=== PATIENT | male | born 1990 | race Caucasian/White ===

== ENCOUNTER 2023-03-16 07:24 | Emergency (ER) | payer OTHER ==
[2023-03-16 07:51] VITALS: BP 150/79; O2SAT 96
[2023-03-16 08:10] LABS: BASOPHILS % (AUTO) 0.3 %; EOSINOPHILS # (AUTO) 0.1 10^3/uL (0.0-0.7); EOSINOPHILS % (AUTO) 0.6 %; HCT - HEMATOCRIT 50.3 % (42.0-52.0); HGB - HEMOGLOBIN 16.9 g/dL (14.0-18.0); LYMPHOCYTES # (AUTO) 0.7 10^3/uL (1.5-3.5); LYMPHOCYTES % (AUTO) 9.1 %; MEAN CORPUSCULAR HEMOGLOBIN 29.6 pg (27.0-31.0); MEAN CORPUSCULAR HGB CONC 33.6 g/dL (32.0-36.0); MEAN CORPUSCULAR VOLUME 88.1 fL (80.0-94.0); MEAN PLATELET VOLUME 9.3 fL (7.4-11.4); MONOCYTES # (AUTO) 0.7 10^3/uL (0.0-1.0); MONOCYTES % (AUTO) 8.7 %; NEUTROPHILS # (AUTO) 6.2 10^3/uL (1.5-6.6); PLT - PLATELET COUNT 280 10^3/uL (130-450); RED BLOOD COUNT 5.71 10^6/uL (4.70-6.10); RED CELL DISTRIBUTION WIDTH 11.9 % (12.0-15.0); WHITE BLOOD COUNT 7.7 x10^3/uL (4.8-10.8)
--- NOTE | 2023-03-16 08:22 | XRAY Report ---
PROCEDURE: Chest 1 View X-Ray INDICATIONS: Chest pain TECHNIQUE: One view of the chest was acquired. COMPARISON: None. FINDINGS: Surgical changes and devices: None. Lungs and pleura: No pleural effusions or pneumothorax. Lungs are clear. Mediastinum: Mediastinal contours appear normal. Heart size is normal. Bones and chest wall: No suspicious bony lesions. Overlying soft tissues appear unremarkable. IMPRESSION: No acute cardiopulmonary process. Reviewed by: Ren Gudino on 03/16/2023 8:20 AM PDT Approved by: Ren Gudino on 03/16/2023 8:20 AM PDT Station ID: [id number]
[2023-03-16 08:25] LABS: ALBUMIN 5.1 g/dL (3.2-5.5)
[2023-03-16 08:32] LABS: TROPONIN I HIGH SENSITIVITY 2.4 ng/L (2.3-19.7)
[2023-03-16 08:35] LABS: ALBUMIN/GLOBULIN RATIO 2.1 (1.0-2.2); BILIRUBIN,TOTAL 2.8 mg/dL (0.2-1.0); CALCIUM 10.2 mg/dL (8.5-10.3); CREATININE 0.9 mg/dL (0.6-1.3); POTASSIUM 4.1 mmol/L (3.5-4.5); TOTAL PROTEIN 7.5 g/dL (6.4-8.9)
--- NOTE | 2023-03-16 09:24 | ED Physician Documentation ---
PD HPI CHEST PAIN - Stated complaint Stated Complaint: CP/LIGHT HEADED - Chief complaint Chief Complaint: Cardiac - History obtained from History obtained from: Patient - Additional information Additional information: Patient is a 32-year-old male with no significant past medical history presenting for evaluation of episodes of substernal chest pain that have been intermittent for the past 3 weeks. Patient states he feels them more at night and has made had maybe approximately 7 episodes with the last being last night around 10:00 PM. Patient states that earlier he had had pizza for dinner. He denies associated nausea or vomiting with the chest pains. He states that the episodes have not been getting worse but felt he should get checked for them. At this morning he felt nauseous and had 1 episode of emesis. Denies abdominal symptoms. No fever, shortness of air, back pain. Denies history of hypertension, diabetes, hyperlipidemia. Review of Systems Constitutional: denies: Fever Cardiac: reports: Chest pain / pressure Respiratory: denies: Dyspnea, Cough GI: reports: Nausea, Vomiting. denies: Abdominal Pain, Diarrhea, Bloody / black stool : denies: Dysuria PD PAST MEDICAL HISTORY - Past Medical History Past Medical History: No - Past Surgical History Past Surgical History: No - Allergies Allergies/Adverse Reactions: Allergies Allergy/AdvReac Type Severity Reaction Status Date / Time No Known Drug Allergies Allergy Verified 03/16/23 07:44 - Social History Does the pt smoke?: No Smoking Status: Never smoker Does the pt drink ETOH?: No Does the pt have substance abuse?: No - Immunizations Immunizations are current?: Yes - POLST Patient has POLST: No PD ED PE NORMAL - General General: Alert and oriented X 3, No acute distress, Well developed/nourished - HEENT HEENT: Atraumatic, Moist mucous membranes, Pharynx benign - Neck Neck: Supple, no meningeal sign - Cardiac Cardiac: RRR, No murmur - Respiratory Respiratory: No respiratory distress, Clear bilaterally - Abdomen Abdomen: Normal bowel sounds, Soft, Non tender, Non distended - Derm Derm: Warm and dry - Extremities Extremities: No edema, No calf tenderness / cord - Neuro Neuro: Alert and oriented X 3, Normal speech Results - Vitals Vitals: Vital Signs - 24 hr 03/16/23 07:41 Temperature 36.4 C L Heart Rate 95 Respiratory 20 Rate Blood Pressure 150/79 H O2 Saturation 96 Oxygen O2 Source Room air - EKG (time done) 0735 EKG releavant findings:: EKG personally interpreted by author of this note. Relevant findings are: Rate 95, normal sinus rhythm, no STEMI, no ST depressions Rate: Rate (enter#) - Labs Labs: Laboratory Tests 03/16/23 03/16/23 08:07 08:07 WBC 7.7 RBC 5.71 Hgb 16.9 Hct 50.3 MCV 88.1 MCH 29.6 MCHC 33.6 RDW 11.9 L Plt Count 280 MPV 9.3 Neut # (Auto) 6.2 Lymph # (Auto) 0.7 L [place] # (Auto) 0.7 Eos # (Auto) 0.1 Baso # (Auto) 0.0 Absolute Nucleated RBC 0.00 Nucleated RBC % 0.0 Sodium 139 Potassium 4.1 Chloride 103 Carbon Dioxide 30 Anion Gap 6.0 BUN 14 Creatinine 0.9 Estimated GFR (MDRD) 97 Glucose 133 H Calcium 10.2 Total Bilirubin 2.8 H AST 530 H ALT 637 H Alkaline Phosphatase 93 Troponin I High Sens 2.4 Total Protein 7.5 Albumin 5.1 Globulin 2.4 Albumin/Globulin Ratio 2.1 Lipase 21 PD Medical Decision Making - ED course Complexity details: reviewed results, re-evaluated patient, d/w patient ED course: Patient presenting for evaluation of chest pain. Also had 1 episode of emesis this morning. Otherwise currently feels asymptomatic. Last episode of chest pain was last night. No risk factors that are known for coronary artery disease. CBC, chemistry were obtained and reviewed along with troponin. Labs are significant for abnormal bilirubin and elevated LFTs. Troponin is negative with symptoms greater than 6 hours ago and no current symptoms. EKG is nonischemic. Chest x-ray which I reviewed is without signs of consolidation or effusion. Patient has no abdominal tenderness noted on exam. I did obtain an ultrasound which demonstrated gallstones but no wall thickening or findings to suggest cholecystitis and no biliary duct dilatation. I repeated my abdominal exam with still no tenderness elicited. Patient again also denies having abdominal pains. No symptoms to suggest Ongoing biliary obstruction. I reviewed the case with on-call general surgery who recommends outpatient follow-up. Patient was instructed regarding this as well as advised on strict return precautions should he develop pain or notice more yellowing of the skin or any other concerning symptoms. 1020 - Discussed with Dr. See. As patient does not currently have any pain does not feel he necessarily needs an emergent MRCP at this time. He can follow-up as an outpatient to discuss having his gallbladder removed. Departure - Departure Disposition: 01 Home, Self Care Clinical Impression: Chest pain, Abnormal liver enzymes, Cholelithiasis Condition: Stable Instructions: ED Chest Pain Atypical Unkn Cause, ED Gallstone W Biliary Colic Follow-Up: Jermain See MD [Provider Admit Priv/Credential] - [facility] [Provider Group] Comments: You were evaluated for chest pain as well as an episode of vomiting today. Your EKG and cardiac markers are reassuring with no signs of a heart attack at this time. Your chest x-ray is also clear. However on your testing today we noticed that your liver markers were abnormal. We obtained an ultrasound to evaluate your liver and your gallbladder. You do have gallstones but otherwise there is no signs of blockage of your bile ducts or inflammation of your gallbladder. Your labs may be abnormal due to recently having a stone in one of your ducts that is since passed. It is reassuring that you are not having any abdominal pain and you have no tenderness on your exam. [facility] your [facility] pain as you may need further testing and need referral to general surgery to discuss having your gallbladder removed. I have listed the name of one of our general surgeons that you can follow-up with. If at anytime you have any worsening symptoms such as increased chest pain, development of abdominal pain, noticed increased yellowing of your skin or darker urine then you need to return to the emergency department. In the meanwhile please adhere to a low-fat diet. Forms: PCP List Discharge Date/Time: 03/16/23 10:32
--- NOTE | 2023-03-16 10:33 | Ultrasound Report ---
PROCEDURE: Abdomen Limited INDICATIONS: RUQ/ abnormal lfts and bilirubin TECHNIQUE: Real-time focused scanning was performed of the abdomen, with image documentation. COMPARISONS: None. FINDINGS: Liver: Liver is normal in size and hypoechoic in echotexture. No discrete hepatic lesion. Gallbladder: Stones are noted in the dependent portion of gallbladder lumen. No gallbladder wall thic kening or pericholecystic fluid. No sonographic Alaniz's sign. Biliary ducts: Intrahepatic bile ducts are non-dilated. Extrahepatic bile duct caliber measures 4.7 mm. Normal is 6-7 mm or less in diameter, or 10 mm or less post-cholecystectomy. Pancreas: Visualized portions of the pancreas are sonographically normal. Right kidney: Normal in size and echotexture. Right kidney measures 11.5 cm long. No hydronephrosis or nephrolithiasis. No solid masses. No complex renal cystic lesions which require follow-up. Aorta: Visualized aorta is normal in caliber at less than 3 cm. IVC: Intrahepatic inferior vena cava is patent. Miscellaneous: No free abdominal fluid. IMPRESSION: 1. Hepatic steatosis, no discrete hepatic lesion. 2. Cholelithiasis without sonographic evidence of acute cholecystitis. No biliary ductal dilatation. Reviewed by: Kavin Stephens MD on 03/16/2023 10:32 AM PDT Approved by: Kavin Stephens MD on 03/16/2023 10:32 AM PDT Station ID: [id number]
== END 2023-03-16 10:32 | disposition home or self-care (01) ==
LOC: ED 07:24
DX: R07.9 Chest pain, unspecified (principal); R74.01 Elevation of levels of liver transaminase levels; K80.20 Calculus of gallbladder without cholecystitis without obstruction
CPT/HCPCS: 36415; 80053; 83690; 84484; 85025; 93005; 99283; 99284

== ENCOUNTER 2023-03-18 12:51 | Outpatient (CLI) | payer OTHER ==
[2023-03-18 13:05] LABS: BASOPHILS # (AUTO) 0.1 10^3/uL (0.0-0.1); EOSINOPHILS # (AUTO) 0.2 10^3/uL (0.0-0.7); EOSINOPHILS % (AUTO) 3.7 %; HCT - HEMATOCRIT 49.2 % (42.0-52.0); HGB - HEMOGLOBIN 16.3 g/dL (14.0-18.0); LYMPHOCYTES # (AUTO) 1.1 10^3/uL (1.5-3.5); LYMPHOCYTES % (AUTO) 21.8 %; MEAN CORPUSCULAR HEMOGLOBIN 29.6 pg (27.0-31.0); MEAN CORPUSCULAR HGB CONC 33.1 g/dL (32.0-36.0); MEAN CORPUSCULAR VOLUME 89.5 fL (80.0-94.0); MEAN PLATELET VOLUME 9.4 fL (7.4-11.4); MONOCYTES # (AUTO) 0.6 10^3/uL (0.0-1.0); MONOCYTES % (AUTO) 11.6 %; NEUTROPHILS # (AUTO) 3.2 10^3/uL (1.5-6.6); NEUTROPHILS % (AUTO) 61.7 %; PLT - PLATELET COUNT 254 10^3/uL (130-450); RED CELL DISTRIBUTION WIDTH 11.9 % (12.0-15.0); WHITE BLOOD COUNT 5.2 x10^3/uL (4.8-10.8)
[2023-03-18 13:18] LABS: BILIRUBIN,TOTAL 1.7 mg/dL (0.2-1.0); CALCIUM 10.1 mg/dL (8.5-10.3); CREATININE 0.9 mg/dL (0.6-1.3); POTASSIUM 4.3 mmol/L (3.5-4.5); TOTAL PROTEIN 7.5 g/dL (6.4-8.9)
== END 2023-03-18 12:52 | disposition home or self-care (01) ==
LOC: LAB 12:51
PROVIDERS: ATTEND Family Medicine
DX: K80.20 Calculus of gallbladder without cholecystitis without obstruction (principal); R17 Unspecified jaundice
CPT/HCPCS: 36415; 80053; 82150; 83690; 85025

== ENCOUNTER 2023-05-09 10:52 | Day surgery (SDC) | payer OTHER ==
[~2023-05-09 10:52] MED LIST: ACETAMINOPHEN 500 MG TABLET PO ONE; CELECOXIB 100 MG CAPSULE PO ONE; ceFAZolin 2 GM VIAL ONE; metroNIDAZOLE 500 MG/100 ML 500 MG/100 ML BAG ONE
[2023-05-09] MEDS ORDERED: LACTATED RINGERS 1,000 ML IV ONE ×3 (11:02→14:27)
--- NOTE | 2023-05-09 11:48 | ANESTHESIA ---
Pre-Anesthesia VS, & Labs - Diagnosis cholelithiasis - Procedure lap alexa with IOC Vital Signs: Temp Pulse Resp BP Pulse Ox O2 Flow Rate 36.3 C L 71 15 128/81 H 98 05/09/23 11:10 05/09/23 11:10 05/09/23 11:10 05/09/23 11:10 05/09/23 11:10 Height: 6 ft 1 in Weight (kg): 103.6 kg Body Mass Index: 30.1 BMI Classification: Obese - NPO >8 hours Home Medications and Allergies Home Medications: Ambulatory Orders Baclofen [Lioresal] 10 mg PO TID PRN 05/02/23 Clobetasol 0.05% Oint [Temovate 0.05% Oint] 1 applic TOP DAILY 05/02/23 Baclofen [Lioresal] 10 mg PO TID PRN 05/02/23 Clobetasol 0.05% Oint [Temovate 0.05% Oint] 1 applic TOP DAILY 05/02/23 Allergies/Adverse Reactions: Allergies Allergy/AdvReac Type Severity Reaction Status Date / Time No Known Drug Allergies Allergy Verified 03/16/23 07:44 Anes History & Medical History - Anesthetic History Anesthesia Complications: reports: No previous complications Family history of Anesthesia Complications: Denies Family history of Malignant Hyperthermia: Denies - Medical History Cardiovascular: reports: None Pulmonary: reports: Sleep apnea, CPAP use Gastrointestinal: reports: Cholelithiasis Urinary: reports: None Musculoskeletal: reports: Chronic back pain Endocrine/Autoimmune: reports: None Skin: reports: Other Smoking Status: Never smoker - Surgical History Eyes Ears Nose Throat (EENT): reports: Tonsil/Adenoidectomy Exam General: Alert, Oriented x3, Cooperative Dental: WNL Neck Mobility: Normal Mallampati classification: I Thyromental Distance: 4-6 cm Respiratory: Lungs clear Cardiovascular: Regular rate Plan Anesthesia Type: General Consent for Procedure(s) Verified and Reviewed: Yes Code Status: Attempt Resuscitation ASA classification: 1-Healthy patient Is this case an emergency?: No
[2023-05-09] MEDS ORDERED: HYDROmorphone 0.5 MG/0.5 ML SYRINGE IVP PRN ×2 (11:49→14:32)
[2023-05-09] MEDS ORDERED: ONDANSETRON 4 MG/2 ML VIAL IVP PRN ×2 (11:49→14:32)
[2023-05-09] MEDS ORDERED: NALOXONE 0.4 MG/ML VIAL IVP PRN (11:49)
[2023-05-09] MEDS ORDERED: MORPHINE 2 MG/ML CARPUJECT IVP PRN (11:49)
[2023-05-09] MEDS ORDERED: ATROPINE ABBOJECT 1 MG/10 ML SYRINGE IVP PRN (11:49)
[2023-05-09] MEDS ORDERED: ePHEDrine 50 MG/ML VIAL IVP PRN (11:49)
[2023-05-09] MEDS ORDERED: METOCLOPRAMIDE 10 MG/2 ML VIAL IVP PRN (11:49)
[2023-05-09] MEDS ORDERED: fentaNYL 100 MCG/2 ML VIAL IVP PRN (11:49)
[2023-05-09] MEDS ORDERED: ROCURONIUM 50 MG/5 ML VIAL ONE (11:50)
[2023-05-09] MEDS ORDERED: PROPOFOL 200 MG/20 ML VIAL IVP ONE (11:50)
[2023-05-09] MEDS ORDERED: MIDAZOLAM 2 MG/2 ML VIAL ONE (11:51)
[2023-05-09] MEDS ORDERED: LIDOCAINE 1%-EPI 1:100000 20 ML MDV ONE (11:55)
[2023-05-09] MEDS ORDERED: BUPIVACAINE 0.5% PF 10 ML VIAL ONE (11:56)
[2023-05-09] MEDS ORDERED: iohexoL-240 10 ML VIAL IVP ONE ×5 (11:56→13:43)
[2023-05-09] MEDS ORDERED: LACTATED RINGERS 1,000 ML IV SCH (12:00)
[2023-05-09] MEDS ORDERED: BUPIVACAINE 0.5% PF 10 ML VIAL SUBQ ONE (13:06)
[2023-05-09] MEDS ORDERED: LIDOCAINE 1%-EPI 1:100000 20 ML MDV SUBQ ONE (13:06)
[2023-05-09] MEDS ORDERED: ONDANSETRON 4 MG/2 ML VIAL ONE (13:14)
[2023-05-09] MEDS ORDERED: DEXAMETHASONE 10 MG/ML VIAL ONE (13:14)
[2023-05-09] MEDS ORDERED: SUGAMMADEX 200 MG/2 ML VIAL IVP ONE ×2 (13:22→14:11)
[2023-05-09] MEDS ORDERED: fentaNYL 100 MCG/2 ML VIAL ONE (13:24)
--- NOTE | 2023-05-09 14:21 | OPERATIVE REPORT ---
Operative Report - General Procedure Date: 05/09/23 Planned Procedure: laparoscopic cholecystectomy with cholagiogram, possible open Pre-Op Diagnosis: chronic cholecystitis, symptomatic cholelithiasis Procedure Performed: laparoscopic cholecystectomy with cholagiogram Post Op Diagnosis: chronic cholecystitis, symptomatic cholelithiasis - Procedure Note Primary Surgeon: Dr. Qing Fermin Anesthesia Provider: Dion Milan CRNA Anesthesia Technique: General ET tube Pathology: gallbladder and appendix Estimated Blood Loss (mL): 10 Indications: The patient has had episodic RUQ abdominal pain in the evening after rich meals for the last couple of months. He had imaging demonstrating gallstones and had a single episode of jaundice which has since resolved. He was seen in the clinic and evaluated. We discussed the risks, benefits, and alternatives of lap alexa including bleeding, infection, damage to surrounding structures, and the possible need for additional surgery or procedures. He voiced understanding, his questions were answered, and he wished to proceed with surgery. A consent was signed in clinic. Findings: 1. gallstones 2. mild adhesions between gallbladder and omentum Complications: none - Other Other Information/Narrative: The patient was brought to the operative suite and placed in the supine position. General endotracheal anesthesia was induced. Preoperative antibiotics were given. ERAS protocol was followed. A preop surgical timeout was performed. Local anesthetic was injected into the skin and subcutaneous tissues just inferior to the umbilicus. An 11 blade scalpel was used to make a 5 mm transverse skin incision in this location. Next, a hemostat was used to spread the tissues down to the level of the fascia and a Serena clamp was used to grasp and elevate the umbilical stalk. A Varess needle was used to gain access to the peritoneal space. Low flow insufflation revealed low pressures and then high flow insufflation was undertaken to 15 mmHg. Next, the Varess needle was removed and a 5 mm laparoscopic port was inserted in this location. Through this port, a 5 mm 30 degree laparoscope was inserted. On inspection of the abdomen no injury was caused on entry. Next, the patient was placed in reverse Trendelenburg and rotated slightly to the left. Two 5 mm ports were inserted in the right upper quadrant, one in the anterior axillary line and the other in the midclavicular line. Also, a 12 mm port was inserted in the subxiphoid region. All ports were placed by first anesthetizing the skin and subcutaneous tissues with local anesthetic, then by making an appropriate length incision with an 11 blade scalpel, and finally by placing the port under direct laparoscopic vision. Once the ports were in place, a ratcheted, toothed grasper was used to elevate the fundus of the gallbladder toward the patient's right shoulder. There were loose adhesions in the right upper quadrant between the omentum and the gallbladder. These were taken down with blunt and sharp dissection with electrocautery. Next, the peritoneum was incised starting at the hilum of the gallbladder and working toward the fundus along the gallbladder liver interface on the medial and lateral aspects of the gallbladder. Next, attention was returned to the hilum of the gallbladder. The alveolar tissues in this region were taken down with blunt and sharp dissection with electrocautery taking great care not to cauterize though any tissue I could not easily see through. Two ductal structures were isolated and skeletonized such that each ductal structure could be visualized with liver present on either side. The cystic plate was also developed. At this time, it was felt that a critical view of safety had been obtained. A vein was also visible along the cystic plate. Next, a clip was placed distally, that is toward the gallbladder, on the cystic duct and just proximal to this a ductotomy was performed. A cholangiogram c atheter was placed within the duct and it was flushed with saline. There was no leakage and it flushed easily. Clips were also placed proximally and distally on the cystic artery. Full strength Isovue dye was then placed on the cholangiogram catheter and a cholangiogram was performed. The cholangiogram appeared normal. There was good filling of the right and left hepatic system as well as the duod enum and common bile duct. There were no filling defects. Next the cholangiogram catheter was removed. Two clips were placed proximally on the cystic duct. The cystic duct and cystic artery were divided using laparoscopic scissors between the clips. Next, the gallbladder was dissected off of the liver bed. Once it was completely freed, the gallbladder was placed in an Endo Catch bag and removed through the epigastric port. The epigastric port was replaced and suction and irrigation were used to remove any fluid from the right upper quadrant. This was done until the fluid returned was clear. Next, a laparoscopic fascial closure device was used to place a single interrupted 0 Vicryl suture at the epigastric port. This reapproximated the fascia well. The remaining ports were removed under direct laparoscopic vision and the abdomen was deflated. Next, the skin edges were reapproximated with 4-0 Monocryl in an interrupted subcuticular fashion. A sterile dressing of skin glue was placed. The patient tolerated the procedure well. The patient was extubated in the operating room and transferred to the recovery room in stable condition. There were no complications.
[2023-05-09] MEDS ORDERED: IBUPROFEN 600 MG TABLET PO PRN (14:32)
[2023-05-09] MEDS ORDERED: ACETAMINOPHEN 325 MG TABLET PO PRN (14:32)
[2023-05-09] MEDS ORDERED: oxyCODONE 5 MG TABLET PO PRN (14:32)
[2023-05-09] MEDS ORDERED: HYDROmorphone 0.5 MG/0.5 ML SYRINGE ONE (14:43)
[2023-05-09] MEDS ORDERED: oxyCODONE 5 MG TABLET ONE (15:34)
[2023-05-09 15:52] VITALS: BP 135/67; O2SAT 98
--- NOTE | 2023-05-09 16:04 | ANESTHESIA POST OP EVALUATION ---
Anesthesia Post Eval - Post Anesthesia Eval Vitals: Last Vital Signs Temp 36.2 C L 05/09/23 15:51 Pulse 71 05/09/23 15:51 Resp 18 05/09/23 15:51 BP 135/67 H 05/09/23 15:51 Pulse Ox 98 05/09/23 15:51 O2 Flow Rate CV Function Including HR & BP: Stable Pain Control: Satisfactory Nausea & Vomiting: Negative Mental Status: Baseline Respiratory Status: Airway Patent Hydration Status: Satisfactory Anesthesia Complications: None
--- NOTE | 2023-05-09 17:05 | XRAY Report ---
PROCEDURE: OR C-Arm Procedure INDICATIONS: cholangiogram FLUORO TIME: 0.5 TECHNIQUE: 2 intraoperative cine clips and 1 single image from cholangiogram COMPARISON: None. FINDINGS: Intraoperative cholangiogram demonstrates normal appearance of the visualized intrahepatic and extrah epatic ducts with no filling defect to suggest an obstructive stone or sludge. There is brisk filling of the duodenum. IMPRESSION: Intraoperative cholangiogram demonstrates no obstructive stone or sludge. Please see operative report for details. Reviewed by: Arielle Bradford MD on 05/09/2023 5:03 PM PST Approved by: Arielle Bradford MD on 05/09/2023 5:03 PM PST Station ID: [id number]
== END 2023-05-09 10:53 | disposition home or self-care (01) ==
LOC: SDS 10:52
PROVIDERS: ATTEND Surgery
PROC: 0FT44ZZ Resection of Gallbladder, Percutaneous Endoscopic Approach (ICD-10-PCS; principal; 2023-05-09 12:15)
DX: K80.10 Calculus of gallbladder with chronic cholecystitis without obstruction (principal); E66.9 Obesity, unspecified; Z68.30 Body mass index [BMI] 30.0-30.9, adult; G47.30 Sleep apnea, unspecified
CPT/HCPCS: 47563; A9270; C1758; J1170; J7120; Q9966